=== PATIENT | male | born 1985 | race Caucasian/White ===

== ENCOUNTER 2016-07-20 00:16 | Emergency (ER) | payer MEDICAID ==
[2016-07-20] MEDS ORDERED: KETOROLAC 60 MG/2 ML VIAL IM ONE (01:43)
[2016-07-20] MEDS ORDERED: PROMETHAZINE 25 MG/ML VIAL ONE (01:53)
== END 2016-07-20 02:36 | disposition home or self-care (01) ==
LOC: ER 00:16
DX: R07.2 Precordial pain (principal); R07.89 Other chest pain; F41.1 Generalized anxiety disorder; S39.012A Strain of muscle, fascia and tendon of lower back, initial encounter; S33.5XXA Sprain of ligaments of lumbar spine, initial encounter; F43.12 Post-traumatic stress disorder, chronic; F17.210 Nicotine dependence, cigarettes, uncomplicated
CPT/HCPCS: 71020; 72100; 93005; 96372